=== PATIENT | female | born 1965 | race Caucasian/White ===

== ENCOUNTER → 2016-06-13 | Outpatient (CLI) | payer OTHER ==
[~2016-06-13] MED LIST: ALBUTEROL-200 PUFFS/ IH; AMITRIPTYLINE10 MG PO; AMOXICILLIN 50500 MG PO; ATIVAN1 M1 PO; BUDESONIDE3 MG PO; DYAZIDE CAP (M1 EACH PO; HYCOFENIX 2.5-473 ML PO; LEVOTHYROXIN0.075 M1 PO; LOMOTIL 2.5MG.2.5 MG PO; MAXZIDE 25 MG-31 TAB PO; MEDROL 4MG. DOSE4 MG PO; NAPROSYN 500MG500 MG PO; NEXIUM40 MG PO; PRILOSEC20 M1 PO; ROBAXIN-750750 MG PO; SYNTHROID 0.00.05 MG PO; TRAMADOL 50MG T50 M1 PO; VALIUM 5MG TABLE5 MG; ZANTAC 150150 MG PO; ZOFRAN ODT4 MG PO
[2016-06-13 17:08] LABS: HEMOGLOBIN 13.5 g/dL (12.2-16.2); LYMPH # 1.1 K/mm3 (0.7-4.5); LYMPH % 8.2 % (10-50.0)
[2016-06-13 17:29] LABS: AMPHETAMINES/METAMPHETAMINES NEGATIVE ng/mL (<1000)
[2016-06-13 17:38] LABS: NEUTROPHILS 84 % (42-76)
[2016-06-13 18:22] LABS: BUN 13 mg/dL (7-18)
[2016-06-13 18:23] LABS: GFR (ESTIMATED) 89 ML/MIN (59-)
[2016-06-15 07:38] LABS: HBsAg Screen Negative (Negative); Hep A Ab, IgM Negative (Negative); Hep B Core Ab, IgM Negative (Negative); Hep C Virus Ab <0.1 (0.0-0.9)
== END ==
LOC: LAB 16:39
PROVIDERS: Nurse Practitioner Family
DX: T14.8 Other injury of unspecified body region (principal); F43.22 Adjustment disorder with anxiety; Z79.899 Other long term (current) drug therapy

== ENCOUNTER → 2016-09-24 | Outpatient (CLI) | payer OTHER ==
--- NOTE | 2016-09-25 06:01 | RADIOLOGY REPORT PS360 ---
MRI-T-SPINE W/O HISTORY: Mid back pain radiating anteriorly CLOSED WEDGE COMPRESSION FRACTURE, HISTORY KYPHOPLASTY ORDERING PHYSICIAN: Gael Taylor MD PATIENT AGE: 51 years COMPARISON: Radiograph of or 09/20/2016 TECHNIQUE: Standard multiplanar multiecho sequences are performed without contrast. 3-D MIP and myelographic images are also rendered and reviewed. Sagittal T1, T2, and STIR images are obtained with axial T2-weighted images FINDINGS: Severe anterior wedge compression changes are present at T6 with loss of height anteriorly of greater than 50%. There is minimal retropulsion of the posterior inferior aspect of the T6 vertebral body by approximately 2 to 3 mm. No cord compression or canal stenosis evident at this level. There is slight increased STIR signal involving the T6 vertebral body with slight decreased T1 signal indicating mild edema. This fracture was not present on previous chest CT of 01/29/2016 but was present on 07/17/2016 lateral chest radiograph. There is a very severe wedge compression fracture involving the T8 vertebral body. There is loss of height anteriorly of greater than 50% loss of height posteriorly of approximately 50%. There is retropulsion of the posterior superior aspect of the T8 vertebral body by approximately 6 mm. This does abut and slightly flattens the anterior aspect of the spinal cord with resultant canal stenosis at 10 mm at this level. The canal measures nearly 19 mm at the space above this area. There is heterogeneous signal intensity of the T8 vertebral body hypointense on T1 and mostly hyperintense on the STIR and T2-weighted images with a focal area of increased T2 signal intensity along the superior aspect of the vertebral body possibly related to an area of hemorrhage. There is also some heterogeneous signal intensity involving the pedicles of T8 and the medial aspect of the transverse processes. Small area of decreased T1 and increased T2 signal involving the posterior aspect of the T9 vertebral body. This area measures approximately 9 mm better seen on the STIR images. Incidental note is made of a 9 mm and a 5 mm area of increased T2 signal of the right hepatic lobe. This is not well demonstrated. IMPRESSION: 1. Abnormal MRI of the thoracic spine with severe subacute anterior wedge compression changes of T6 with minimal retropulsion of the posterior inferior aspect of the vertebral body. 2. Very severe acute/subacute compression fracture involves T8 greater along the anterior aspect of greater than 50% and approximately 50% along the posterior aspect with retropulsion of the posterior superior aspect x 6 mm with resultant canal stenosis and mild impingement upon the cord. There is some heterogeneity of the vertebral body and pedicles and transverse process at this level. One cannot exclude the possibility of a metastatic lesion at this level especially in light of a hyperintense lesion at T9 vertebral body and possible lesions in the liver. Metastatic workup should be considered which would include a CT chest abdomen and pelvis as well as a total body bone scan.
== END ==
LOC: RAD 09-23 16:00
DX: S22.060A Wedge compression fracture of T7-T8 vertebra, initial encounter for closed fracture (principal)

== ENCOUNTER → 2016-10-03 | Outpatient (CLI) | payer OTHER ==
--- NOTE | 2016-10-03 17:34 | RADIOLOGY REPORT PS360 ---
CT CHEST W/ CONTRAST INDICATION: Chest pain, thoracic pain, thoracic spine pain, compression fractures THORACIC SPINE PAIN, WEDGE COMPRESSION FX T8, LEUKOCYTOSIS ORDERING PHYSICIAN: Gael Taylor MD PATIENT AGE: 51 years COMPARISON: None TECHNIQUE: Axial images are obtained following the intravenous administration of 75 mL's of Isovue-370. Sagittal and coronal reformatted images are reviewed as well. The patient was premedicated for contrast administration. There was no evidence of contrast reaction following IV contrast administration FINDINGS: There is no evidence of mediastinal or hilar mass or adenopathy. There is tiny apical blebs on the right. There is calcified granuloma in the right lower lobe. Calcified nodes are present in the right hilum.. No lobar consolidation or collapse. No suspicious pulmonary nodules are evident. There is no evidence of central pulmonary embolus or aortic aneurysm. No suspicious pulmonary nodules are evident. No effusions or infiltrates. Moderate to severe wedge compressive changes are once again noted involving T6 and severe wedge compression changes of T8 with retropulsion of the posterior superior aspect of the T8 vertebral body by 6 to 7 mm. A Schmorl's node is present along the superior endplate of T9. No obvious destructive lesions are evident. IMPRESSION: 1. Severe wedge compression changes of T6 and T8 as noted on the MRI with retropulsion of the posterior superior aspect of T8. No obvious destructive lesions or paraspinal masses evident. 2. No suspicious pulmonary nodule evident. IMPRESSION:
--- NOTE | 2016-10-03 17:39 | RADIOLOGY REPORT PS360 ---
CT ABD PELVIS W/ CONTRAST CLINICAL INDICATION: Possible liver lesion seen on recent MRI THORACIC SPINE PAIN, WEDGE COMPRESSION FX T8, LEUKOCYTOSIS ORDERING PHYSICIAN: Gael Taylor MD PATIENT AGE: 51 years COMPARISON: 01/29/2016 TECHNIQUE: Axial images obtained with sagittal and coronal reformats. PROCEDURE: Oral Contrast: None IV Contrast: 75 mL of Isovue-370 performed in conjunction with the chest CT. FINDINGS: No liver lesions are evident. The abnormality noted on MRI may been related to artifact. There has been a prior cholecystectomy. The spleen, pancreas, and adrenal glands are unremarkable. No intra-abdominal or pelvic mass or adenopathy is evident. There is no evidence of appendicitis or diverticulitis. No intestinal obstruction or free air. No adenopathy. The kidneys have an unremarkable appearance. No bony anomalies evident. IMPRESSION: Negative CT abdomen and pelvis, no acute finding with no significant change from 01/29/2016. No liver lesions demonstrated.
== END ==
LOC: RAD 11:00
DX: S22.060A Wedge compression fracture of T7-T8 vertebra, initial encounter for closed fracture (principal); M54.6 Pain in thoracic spine; D72.829 Elevated white blood cell count, unspecified
CPT/HCPCS: Q9967

== ENCOUNTER → 2017-02-12 | Outpatient (CLI) | payer OTHER ==
[2017-02-12 18:41] LABS: AMPHETAMINES/METAMPHETAMINES NEGATIVE ng/mL (<1000)
== END ==
LOC: LAB 15:56
PROVIDERS: Emergency Medicine
DX: Z79.899 Other long term (current) drug therapy (principal)

== ENCOUNTER → 2017-02-17 | Outpatient (CLI) | payer MEDICAID ==
--- NOTE | 2017-02-17 19:55 | RADIOLOGY REPORT PS360 ---
THORACIC SPINE-3V SWIMMERS HISTORY: FALLthe external pain. Patient Age: 51 years: Female Ordering Physician: Gael Taylor MD TECHNIQUE: AP lateral and swimmer's view T-spine COMPARISON :09/09/2016 plain films T-spine FINDINGS The patient is undergone kyphoplasty at previous severe wedge compression o f T8. There is been little change in the severe wedge only very subtle if any increase height at T8. This previous anterolisthesis here. There is accentuated kyphosis.. At the T8 level due to the severe wedge compression There is also been kyphoplasty with bone cement seen at T6. Stable wedge compression fracture here also noted.. Diffuse demineralization is again noted Compared back to the CT chest 10/03/2016 I suspect subtle superior endplate concavity appears stable. There is a small Schmorl's node previously seen superior endplate T4 on the CT from September 2016. No convincing acute additional superior endplate compression. IMPRESSION -------no acute new findings T-spine 1. Interval kyphoplasty T8 with stable severe wedge compression fracture T8 2. Interval kyphoplasty at T6 with stable moderate wedge compression fracture here. 3. No discrete additional acute compression fractures evident The very subtle superior endplate cavity t 4 & T5 most likely stable feature
--- NOTE | 2017-02-17 20:01 | RADIOLOGY REPORT PS360 ---
STERNUM HISTORY: FALL sternal pain. Chest pain Patient Age: 51 years: Female Ordering Physician: Gael Taylor MD TECHNIQUE: Lateral and oblique view*none. COMPARISON :Previous chest x-ray 07/17/2016 FINDINGS Is a prominent transverse fracture at the lower body of the sternum. With this there is a 4.5 mm anterior offset of the inferior fracture fragment relative to the superior sternal fragment. This fracture is difficult to appreciate on the oblique view but clearly evident lateral view. Only minor hematoma is seen posterior to this & slightly less than I would anticipate. IMPRESSION: - Transverse fracture of the lower body sternum. -- At least 4 mm anterior offset of the inferior fracture fragment (Sternal fracture called to Dr. Taylor's office. He is aware and (
--- NOTE | 2017-02-18 08:18 | RADIOLOGY REPORT PS360 ---
[id number] VIEW HISTORY: FALL Patient Age: 51 years: Female Ordering Physician: Gael Taylor MD TECHNIQUE: Oblique views left RIBS along with AP chest above and below diaphragm COMPARISON :07/17/[address] chest 10/03/2016 FINDINGS Multiple rib fractures of of varying ages bilateral Regarding the current left ribs the previous CT chest September 2016 shows old healing fractures at the anterior rib ends of ribs 56 and 7 along with the prior fracture at the lateral sixth rib On these plain films we see an older healing fracture clearly with healing towards anterior rib 8 & 9.. One only one of the oblique views today's would additionally note a fracture of the anterolateral 11th rib with questionable healing and could be consistent with recent in nature tender here. At the right ribs old healing fractures of the lateral ninth rib & anterolateral sixth rib most notable. Also note minor healing fractures anterior rib ends of the seventh eighth and ninth ribs seen on today's plain film on these are more evident and apparently occurred since prior CT Again interval vertebroplasty/kyphoplasty addressing the severe wedge compression fracture at T8 and the less pronounced wedge compression fracture T6 are again noted Perhaps minor basilar atelectasis and scarring but no focal pneumonia. The sternal fracture as there is best appreciated on the lateral dedicated sternal films IMPRESSION 1. Multiple old healing rib fractures bilaterally as detailed in text. Clearly healing evident at these fractures & most have been present since September [address] CT 2. A lateral 11th rib fracture is indeterminate and could recent in nature. Point tenderness required to support acute fracture however 3. Interval vertebroplasty/kyphoplasty at the severe wedge fracture T8 and at the less pronounced wedge fracture T6 again noted 4.. The acute/recent appearing sternal fracture is not appreciated on these rib views, but rather best seen on the true lateral view of sternum-& discussed in separate report
== END ==
LOC: RAD 12:14
DX: M54.6 Pain in thoracic spine (principal); R07.81 Pleurodynia; R07.2 Precordial pain; W19.XXXA Unspecified fall, initial encounter

== ENCOUNTER → 2017-02-26 | Outpatient (CLI) | payer MEDICAID ==
[2017-02-26 17:08] LABS: AMPHETAMINES/METAMPHETAMINES NEGATIVE ng/mL (<1000)
== END ==
LOC: LAB 16:11
PROVIDERS: Emergency Medicine
DX: Z79.899 Other long term (current) drug therapy (principal)

== ENCOUNTER → 2017-04-04 | Outpatient (CLI) | payer MEDICAID ==
[2017-04-04 13:35] LABS: HEMOGLOBIN 14.5 g/dL (12.2-16.2); LYMPH # 4.5 K/mm3 (0.7-4.5); LYMPH % 23.8 % (10-50.0)
[2017-04-04 13:49] LABS: AMPHETAMINES/METAMPHETAMINES NEGATIVE ng/mL (<1000)
[2017-04-04 13:56] LABS: BUN 8 mg/dL (7-18)
[2017-04-04 14:04] LABS: GFR (ESTIMATED) 89 ML/MIN (59-)
[2017-04-04 14:44] LABS: NEUTROPHILS 69 % (42-76)
== END ==
LOC: LAB 13:16
PROVIDERS: Emergency Medicine
DX: R00.0 Tachycardia, unspecified (principal); Z79.899 Other long term (current) drug therapy

== ENCOUNTER → 2017-04-19 | Outpatient (CLI) | payer MEDICAID ==
[2017-04-19 11:56] LABS: BUN 6 mg/dL (7-18)
[2017-04-19 11:59] LABS: GFR (ESTIMATED) 76 ML/MIN (59-)
== END ==
LOC: LAB 10:55
PROVIDERS: Internal Medicine Cardiovascular Disease
DX: I10 Essential (primary) hypertension (principal); R00.0 Tachycardia, unspecified; R07.9 Chest pain, unspecified; R00.2 Palpitations; R06.00 Dyspnea, unspecified; R94.31 Abnormal electrocardiogram [ECG] [EKG]; Z72.0 Tobacco use

== ENCOUNTER → 2017-04-22 | Outpatient (CLI) | payer MEDICAID ==
--- NOTE | 2017-04-22 22:06 | RADIOLOGY REPORT PS360 ---
PROCEDURE: 2-D M-mode and color Doppler study INDICATIONS FOR THE TEST: Chest painX COPD Heart Murmur Tobacco SmokingX PalpitationsX Fatigue Syncope Edema HypertensionXDiabetes Mellitus Rheumatic Fever SOBXDOE Obesity HyperlipidemiaX Family History HDX Additional History ABN EKG PATIENT INFORMATION HEIGHT: 60 WEIGHT:116 GENDER: Female B/P:120/70 2-D/M-MODE INTERPRETATION: 2-D MEASUREMENTS OBSERVED VALUES IN CMS Right Ventricular Dimension (RVDd) 2.4 Interventricular Septum (Thickness)(IVsd) 1.0 Left Ventricular Internal Dimensions(LVIDd) 4.8 Left Ventricular Posterior Wall (Thickness)(LVPWd) .8 Aortic Root 3.2 Aortic Cusp Separation 1.7 Left Atrial Dimensions (LAD) 2.9 2D 1. Left atrium is mildly enlarged, left ventricle is normal size, visually estimated ejection fraction of 50% with no obvious regional wall motion abnormality, endocardial surfaces are somewhat poorly visualized. 2. The right atrium and right ventricle are normal size and contractility. 3. The aortic valve is minimally thickened and fibrosed. 4. The mitral valve leaflets are minimally thickened. 5. The tricuspid valve is structurally normal. 6. The pulmonic valve is poorly visualized. 7. Trivial pericardial effusion noted. DOPPLER INTERROGATION: Doppler interrogation of the aortic, mitral and tricuspid valve reveals presence of mild mitral and tricuspid regurgitation, tricuspid and jet velocity insufficient for calculation of the right ventricular systolic pressure. Grade 1 diastolic dysfunction seen with tissue Doppler evidence of raised left atrial pressure. CONCLUSION: 1. Mildly enlarged left atrium, normal left ventricular size, visually estimated ejection fraction 50% with no obvious regional wall motion abnormality, endocardial surface are somewhat poorly visualized. Grade 1 diastolic dysfunction seen with tissue Doppler evidence of raised left atrial pressure. 2. Mild mitral and tricuspid regurgitation, tricuspid regurgitant jet velocity insufficient for calculation of the right ventricular systolic pressure. 3. Trivial pericardial effusion noted.
--- NOTE | 2017-04-24 15:54 | RADIOLOGY REPORT PS360 ---
History and Indications: Hypertension, tobacco use, family history, chest pain, shortness of breath, palpitations and abnormal EKG. Procedure: Patient received a 0.4 mg of Lexiscan, resting heart rate was 75 bpm resting blood pressure 126/75, with Lexiscan maximum heart rate achieved was 115 bpm which is less than 85% of the maximum predicted heart rate and a blood pressure was 125/70. With Lexiscan patient complained of shortness of breath, chest tightness, nausea. Symptoms resolved 75 mg of intravenous Aminophyllin. Electrocardiogram: Resting electrocardiogram showed sinus rhythm, with Lexiscan there is less than 1.[address] segment depression noted from the baseline EKG. The EKG portion of the Lexiscan Myoview is nondiagnostic. Cardiac stress and resting SPECT images: Cardiac stress and rest SPECT images were obtained using technetium 99 Myoview 10.3 mCi at rest and 32.1 mCi at stress, gated SPECT further analysis of segmental wall motion and calculation of the ejection fraction. Cardiac stress and rest SPECT images show mild fixed defect in the anterior wall with normal contractility gated SPECT is likely secondary to soft tissue attenuation, no reversible ischemia seen. Computer derived ejection fraction is over 65% with no obvious regional wall motion abnormality, right ventricle is mildly enlarged with normal contractility. Conclusion: 1. The EKG portion of the Lexiscan Myoview is nondiagnostic. 2. No obvious scintigraphic evidence of reversible ischemia seen, computer derived ejection fraction is over 65% with no obvious regional wall motion abnormality, right ventricle is mildly enlarged with normal contractility
== END ==
LOC: RT 09:59 → RAD 11:30
DX: R07.9 Chest pain, unspecified (principal); R00.0 Tachycardia, unspecified; I10 Essential (primary) hypertension; R06.00 Dyspnea, unspecified; R00.2 Palpitations; R94.31 Abnormal electrocardiogram [ECG] [EKG]; Z72.0 Tobacco use
CPT/HCPCS: A9502; J2785

== ENCOUNTER → 2017-04-23 | Outpatient (CLI) | payer MEDICAID ==
[2017-04-23 16:35] LABS: AMPHETAMINES/METAMPHETAMINES NEGATIVE ng/mL (<1000)
== END ==
LOC: LAB 15:10
PROVIDERS: Emergency Medicine
DX: Z79.899 Other long term (current) drug therapy (principal)

== ENCOUNTER → 2017-04-28 | Outpatient (CLI) | payer SELFPAY ==
--- NOTE | 2017-04-30 08:14 | RADIOLOGY REPORT PS360 ---
CT CALCIUM SCORING W/3D CLINICAL INDICATION: CHEST PAIN,SOA,DYSPNEA ORDERING PHYSICIAN: ALLA LOCKE MD PATIENT AGE: 51 years COMPARISON: None FINDINGS: The coronary artery calcium score is 18 indicate mild plaque burden with moderate cardiovascular disease risk. Incidental note made of centrilobular emphysematous changes. There is been prior kyphoplasty in the thoracic spine with severe wedging of T8 IMPRESSION: Moderate cardiovascular disease risk with a coronary artery calcium score of 18
== END ==
LOC: RAD 14:15
DX: R06.00 Dyspnea, unspecified (principal); I10 Essential (primary) hypertension; R00.0 Tachycardia, unspecified; R00.2 Palpitations; R94.31 Abnormal electrocardiogram [ECG] [EKG]; Z72.0 Tobacco use